=== PATIENT | female | born 1980 | race Caucasian/White ===

== ENCOUNTER 2023-05-28 18:56 | Emergency (ER) | payer MEDICAID ==
[~2023-05-28] VITALS: Ht 149.9 cm; Wt 80.0 kg
[2023-05-28 19:00] VITALS: O2SAT 99
[2023-05-28] MEDS ORDERED: ONDANSETRON HCL 4MG/2ML INJ IV STA (20:33)
[2023-05-28] MEDS ORDERED: MORPHINE SULFATE 4 MG/ML CPJ (NOT FOR IM USE) IV STA (20:33)
[2023-05-28] MEDS ORDERED: SODIUM CHLORIDE 0.9% 1,000 ML IV ONE (20:45)
[2023-05-28 20:55] LABS: BASOPHILS % 0.4 % (0.0-2.0); EOSINOPHILS % 0.4 % (0.0-5.0); HEMATOCRIT. 36.4 % (36.0-48.0); HEMOGLOBIN. 11.9 g/dL (12.0-16.0); LYMPHOCYTES % 20.1 % (20.0-50.0); MEAN CORPUSCULAR HEMOGLOBIN 28.5 pg (28.0-32.0); MEAN CORPUSCULAR HGB CONC 32.6 g/dL (31.0-37.0); MEAN CORPUSCULAR VOLUME 87.3 fL (81.0-99.0); MEAN PLATELET VOLUME 7.8 fl (7.4-10.4); NEUTROPHILS % 72.1 % (40.0-76.0); PLATELET 293 x1000/uL (130-400); RED BLOOD CELL COUNT 4.17 mill/uL (4.2-5.4); RED CELL DISTRIBUTION WIDTH 14.9 % (11.6-14.6); WHITE BLOOD COUNT 9.4 x1000/uL (4.5-11.0)
[2023-05-28 21:03] LABS: CHLORIDE 108 mEq/L (98-107); INDEX HEMOLYSI 1 (1-3); INDEX ICTERIC 1 (1-4); INDEX LIPEMIC 1 (1-3); POTASSIUM 3.3 mEq/L (3.5-5.1); SODIUM 136 mEq/L (136-145)
[2023-05-28 21:05] LABS: PROTHROMBIN TIME 10.5 sec (9.6-11.0)
[2023-05-28 21:07] LABS: HCG SCREEN NEGATIVE
[2023-05-28 21:10] LABS: ALANINE AMINOTRANSFERASE 14 IU/L (13-61); ALBUMIN 3.6 g/dL (3.4-5.0); ASPARTATE AMINOTRANSFERASE 15 IU/L (15-37); BILIRUBIN TOTAL 0.2 mg/dL (0.1-1.0); CARBON DIOXIDE 23 mEq/L (21-32); CREATININE 0.5 mg/dL (0.6-1.3); GLUCOSE 115 mg/dL (70-105); PROTEIN TOTAL 7.7 g/dL (6.0-8.3); UREA NITROGEN BLOOD 13 mg/dL (7-21)
[2023-05-28 23:15] LABS: CLARITY URINE CLEAR (CLEAR); COLOR URINE YELLOW (YELLOW); GLUCOSE URINE NEGATIVE (NEGATIVE); KETONES URINE NEGATIVE (NEGATIVE); LEUKOCYTE ESTERASE URINE TRACE (NEGATIVE); NITRITE URINE NEGATIVE (NEGATIVE); OCCULT BLOOD URINE TRACE (NEGATIVE); PH URINE 5.5 (4.5-8.0); PROTEIN URINE NEGATIVE (NEGATIVE); SPECIFIC GRAVITY URINE 1.023 (1.005-1.030); UROBILINOGEN URINE 0.2 E.U./dL (0.2-1.0)
[2023-05-28 23:30] LABS: BACTERIA URINE 1+; RBC URINE 0-2 /hpf (0-2); SQUAMOUS EPITHELIAL CELL URINE 1+ /lpf (RARE/1+); WBC URINE 0-2 /hpf (0-2)
[2023-05-29] MEDS ORDERED: IOHEXOL-300 100 ML BOTTLE ONE (02:44)
[2023-05-29 07:00] VITALS: TEMP 97.8
[2023-05-29] MEDS ORDERED: TOPUD PO (10:08)
[2023-05-29 11:12] VITALS: BP 110/60; PULSE 70; RESP 16
== END 2023-05-29 11:14 | disposition home or self-care (01) ==
LOC: ER 18:56
DX: D27.0 Benign neoplasm of right ovary (principal); N83.511 Torsion of right ovary and ovarian pedicle
CPT/HCPCS: 80053; 81003; 81025; 84703; 83690; 85025; 85610; 36415; 96361; 96374; 96375; 99285; 74177; 76830; 76856; J2405; J2270; J7030; Z7610 ×3; Q9967